=== PATIENT | male | born 1960 | race Caucasian/White ===

== ENCOUNTER 2018-09-08 02:18 | Emergency (ER) | payer MEDICARE ==
[2018-09-08 03:35] LABS: #Basophils 0.1 thou/uL (0.0-0.2); #Lymphocytes 0.5 thou/uL (1.20-3.40); #Monocytes 0.3 thou/uL (0.11-0.59); #Neutrophils 8.4 thou/uL (1.40-6.50); %Eosinophils 0.2 % (0.0-10.0); %Lymphocytes 5.7 % (21.0-51.0); %Monocytes 3.4 % (0.0-10.0); %Neutrophils 89.7 % (42.0-75.0); Hemoglobin 13.6 g/dL (14.0-18.0); Mean Corpuscular HGB CONC 34.1 g/dL (32.0-36.0); Mean Corpuscular Hemoglobin 29.4 pg (27.0-31.0); Mean Corpuscular Volume 86.2 fL (78.0-98.0); Mean Platelet Volume 7.2 fL (7.4-10.4); Platelet Count 194 thou/uL (130-400); RBC Distribution Width 11.9 % (11.5-14.5); Red Blood Cell (RBC) Count 4.64 mill/uL (4.70-6.10); White Blood Cell (WBC) Count 9.3 thou/uL (4.8-10.8)
[2018-09-08 03:51] LABS: ALT (SGPT) 51 U/L (8-55); AST (SGOT) 36 U/L (5-34); Albumin 3.7 g/dL (3.5-5.0); Alkaline Phosphatase 83 U/L (40-150); Anion Gap 13 mmol/L (10-20); BUN (Urea Nitrogen) 18 mg/dL (8.4-25.7); Bilirubin, Total 0.5 mg/dL (0.2-1.2); Calc. Creatinine Clearance 0 mL/min (70-130); Carbon Dioxide 19 mmol/L (22-29); Chloride 110 mmol/L (98-107); Estimated GFR-MDRD 62; Globulin 2.4 g/dL (2.4-3.5); Glucose 137 mg/dL (70-105); Potassium 3.4 mmol/L (3.5-5.1); Protein, Total 6.1 g/dL (6.0-8.3); Sodium 139 mmol/L (136-145)
[2018-09-08] MEDS ORDERED: Azithromycin 250 MG TAB ONE (04:00)
[2018-09-08] MEDS ORDERED: predniSONE 20 MG TAB ONE (04:00)
--- NOTE | 2018-09-08 09:05 | RAD ---
FRONTAL VIEW CHEST: INDICATIONS: Dyspnea. COMPARISON: 08/20/2009 FINDINGS: There is patchy left basilar density with adjacent elevation of the left hemidiaphragm. Interstitial prominence of each lung is present. There is prominence of the cardiac silhouette and pulmonary vas culature. Metallic clips are seen at the right axilla. Osseous degenerative change is present. IMPRESSION: 1. Left basilar density, which may relate to atelectasis and/or pneumonia. 2. Findings suggest fluid overload. Recommend correlation with clinical evaluation. Imaging follow up with dedicated two view chest would prove useful. POS: [facility]
== END 2018-09-08 04:05 | disposition home or self-care (01) ==
LOC: MADERS 02:18
DX: J44.1 Chronic obstructive pulmonary disease with (acute) exacerbation (principal); I11.0 Hypertensive heart disease with heart failure; I50.9 Heart failure, unspecified; F31.9 Bipolar disorder, unspecified; G47.00 Insomnia, unspecified; F17.210 Nicotine dependence, cigarettes, uncomplicated
CPT/HCPCS: 36415; 71045; 80053; 83880; 84484; 85025; 87804; 93005; 94644; J7512; J7620